=== PATIENT | female | born 1975 | race African-American/Black ===

== ENCOUNTER 2017-02-11 14:07 | Emergency (ER) | payer BC, OTHER ==
[~2017-02-11] VITALS: Ht 157.5 cm; Wt 100.4 kg
[~2017-02-11 14:07] MED LIST: BACT800T5 PO; CEPH500C3 PO; HYDRO2.5%T TOP; TRAM50 PO; YASM3TAB2 PO
[2017-02-11 14:12] VITALS: BP 140/80; PULSE 80; RESP 16; TEMP 98.2; O2SAT 96
--- NOTE | 2017-02-11 14:58 | PD ---
HPI . Vaginal bleeding Chief Complaint: Bleeding Time Seen by Provider: 14:16 Travel History International Travel<30 days: Yes Contact w/Intl Traveler<30days: Yes Name of Country Traveled to: [facility] Traveled to known affect area: No History of Present Illness HPI Patient presents with vaginal bleeding. She states that she had cramping yesterday with the onset of heavy vaginal bleeding and passage of clots. She states that the discomfort has pretty much resolved but she still has heavy bleeding. She states her last normal menstrual period was January 12. She denies any dyspareunia or vaginal discharge prior to the onset of the heavy bleeding. She reports a known history of fibroids but states that her bleeding is not usually this severe. [id number]: QUALITY: Clots SEVERITY: Severe DURATION: One day TIMING: Continuously CONTEXT: Known history of uterine fibroids MODIFYING FACTORS: No noted exacerbating or relieving symptoms PFSH Past Medical History Diminished Hearing: No Gastrointestinal Disorders: Yes (TREATED FOR H-PYLORI) Reproductive: Yes (FIBROID TUMORS) Immunizations Current: Yes Thyroid Disease: Yes (HYPOTHYROID-NOT MEDICATED) Tetanus Vaccination: > 5 Years Influenza Vaccination: No ?: Unknown LMP: 01-14-17 Social History Alcohol Use: No Tobacco Use: No Substance Use: No Allergies-Medications (Allergen,Severity, Reaction): Coded Allergies: Penicillin (Verified Allergy, Intermediate, RASH, 02/11/17) Reported Meds & Prescriptions Reported Meds & Active Scripts Active No Active Prescriptions or Reported Medications Review of Systems Except as stated in HPI: all other systems reviewed are Neg General / Constitutional: No: Fever, Chills HENT: Positive: Lightheadedness Cardiovascular: No: Chest Pain or Discomfort Respiratory: No: Shortness of Breath Gastrointestinal: No: Nausea, Vomiting Genitourinary: Positive: Pelvic Pain, Menorrhagia, No: Dyspareunia, Discharge Physical Exam Narrative GENERAL: Pleasant, healthy-appearing woman in no acute distress. SKIN: Warm and dry. HEAD: Atraumatic. Normocephalic. EYES: Pupils equal and round. ENT: No nasal bleeding or discharge. Mucous membranes pink and moist. NECK: Trachea midline. Neck is supple. CARDIOVASCULAR: Regular rate and rhythm. RESPIRATORY: No accessory muscle use. GASTROINTESTINAL: Abdomen soft, non-tender, nondistended. : Normal female. There is blood in the vaginal vault but it doesn't appear any heavier than normal menstrual cycle. There is no cervical motion tenderness or adnexal tenderness. MUSCULOSKELETAL: No obvious deformities. No edema. NEUROLOGICAL: Awake and alert. No obvious cranial nerve deficits. Motor grossly within normal limits. Normal speech. PSYCHIATRIC: Appropriate mood and affect; insight and judgment normal. Data Data Last Documented VS Vital Signs Date Time Temp Pulse Resp B/P Pulse Ox O2 Delivery O2 Flow Rate FiO2 02/11/17 15:10 66 16 140/78 72 16 132/80 90 16 136/85 02/11/17 14:12 98.2 96 Orders Ed Urine Pregnancytest Poc (02/11/17 14:16) Wet Prep Profile (02/11/17 14:50) Gc And Chlamydia Pcr (02/11/17 14:50) Orthostatic Vital Signs (02/11/17 14:58) Labs Laboratory Tests Test 02/11/17 14:45 Clue Cells (Wet Prep) NONE SEEN Vaginal Trichomonas (Wet Prep) NONE SEEN Vaginal Yeast (Wet Prep) NONE SEEN MDM Medical Decision Making Medical Screen Exam Complete: Yes Emergency Medical Condition: Yes Differential Diagnosis Differential diagnosis of vaginal bleeding includes but is not limited to dysfunctional uterine bleeding, normal menstrual cycle, ectopic , spontaneous AB, PID. Narrative Course Patient presents for evaluation of vaginal bleeding. Her test is negative. Her pelvic exam is benign. Wet prep is negative. Her heavy vaginal bleeding is most likely related to her fibroids. Diagnosis Primary Impression: Menorrhagia Qualified Code: N92.0 - Menorrhagia with regular cycle Referrals: [facility] Patient Instructions: General Instructions, Menorrhagia (ED) Med/Other Pt SpecificInfo: Prescription(s) given Scripts Tramadol (Ultram)50 Mg Tab50 Mg PO Q4H PRN (PAIN) #12 TAB Ref 0 Prov:Francheska Pinedo MD 02/11/17 Ibuprofen 800 Mg [id number] Mg PO Q8H PRN (pain) #30 TAB Ref 0 Prov:Francheska Pinedo MD 02/11/17 Disposition: 01 DISCHARGE HOME Condition: Stable Francheska Pinedo MD Feb 11, 2017 14:58
[2017-02-11 15:10] VITALS: BP_SYST 132; BP_SYST 136; BP_SYST 140; BP_DIAS 78; BP_DIAS 80; BP_DIAS 85; RESP 16
[2017-02-11] MEDS ORDERED: ULTR50TA5 PO (15:20)
[2017-02-11] MEDS ORDERED: IBUP800T23 PO (15:20)
[2017-02-11 22:04] LABS: CHLAMYDIA PCR NOT DETECTED (NOT DETECT); NEISSERIA PCR NOT DETECTED (NOT DETECT)
== END 2017-02-11 16:18 | disposition home or self-care (01) ==
LOC: PHED 14:07
DX: N92.0 Excessive and frequent menstruation with regular cycle (principal); D25.9 Leiomyoma of uterus, unspecified; E03.9 Hypothyroidism, unspecified
CPT/HCPCS: 84703; 87210; 87491; 87591; 99284

== ENCOUNTER 2017-12-31 12:12 | Emergency (ER) | payer BC ==
[~2017-12-31] VITALS: Ht 157.5 cm; Wt 90.3 kg
[~2017-12-31 12:12] MED LIST changes: -BACT800T5 PO; -CEPH500C3 PO; -HYDRO2.5%T TOP; +IBUP1TAB7 PO; -YASM3TAB2 PO
[2017-12-31 12:14] VITALS: BP 134/71; PULSE 91; RESP 16; TEMP 98.5; O2SAT 98
[2017-12-31] MEDS ORDERED: TYLETAB34 PO (12:32)
--- NOTE | 2017-12-31 12:34 | PD ---
HPI Chief Complaint: Headache Time Seen by Provider: 12:27 Travel History International Travel<30 days: No Contact w/Intl Traveler<30days: No Traveled to known affect area: No History of Present Illness HPI The patient was seen and examined in the presence of the nurse. She complains of headache. Duration is 5 days. Location is right frontal area. There is no thunderclap onset or head injury or fever. She takes no blood thinners. Patient's headache has improved spontaneously and is now fairly mild PFSH Past Medical History Hx Anticoagulant Therapy: No Diabetes: No Diminished Hearing: No Gastrointestinal Disorders: Yes (TREATED FOR H-PYLORI) Reproductive: Yes (FIBROID TUMORS) Immunizations Current: Yes Thyroid Disease: Yes (HYPOTHYROID-NOT MEDICATED) ?: Unknown Social History Alcohol Use: No Tobacco Use: No Substance Use: No Allergies-Medications (Allergen,Severity, Reaction): Coded Allergies: penicillin G (Unverified Allergy, Intermediate, RASH, 12/31/17) Reported Meds & Prescriptions Reported Meds & Active Scripts Active Tylenol-Codeine #3 (Acetaminophen-Codeine) 300-30 mg Tab 1 Tab PO Q4H PRN Ultram (Tramadol HCl) 50 Mg Tab 50 Mg PO Q4H PRN Ibuprofen 800 Mg Tab 800 Mg PO Q8H PRN Review of Systems General / Constitutional: No: Fever HENT: Positive: Headaches Cardiovascular: No: Chest Pain or Discomfort Respiratory: No: Cough Gastrointestinal: No: Nausea Physical Exam Narrative NEUROLOGICAL: Awake and alert. Pupils are equal round and reactive. Motor and sensory grossly within normal limits. Five out of 5 muscle strength in all muscle groups. Normal speech. Psych: Normal mood and affect. Normal insight and judgment. SKIN: Focused skin assessment reveals no rash or ulcers. Skin is warm and dry. Palpation shows no induration or nodules. Data Data Last Documented VS Vital Signs Date Time Temp Pulse Resp B/P (MAP) Pulse Ox O2 Delivery O2 Flow Rate FiO2 12/31/17 12:14 98.5 91 16 134/71 (92) 98 Orders Orders Ketorolac Inj (Toradol Inj) (12/31/17 12:45) [facility] Medical Decision Making Medical Screen Exam Complete: Yes Emergency Medical Condition: Yes Medical Record Reviewed: Yes Differential Diagnosis Differential diagnosis includes migraine, tension headache, cluster headache, meningitis. Narrative Course I have reviewed the patient's electronic medical record. Patient looks clinically well. Neurologically intact. Sedation not consistent with subarachnoid hemorrhage Symptoms are mild and she is smiling and looks comfortable I gave her Toradol injection and a few Tylenol 3 to use as needed The patient was advised to follow up with their physician and return if they worsen. Diagnosis Primary Impression: Headache Qualified Codes: R51 - Headache Med/Other Pt SpecificInfo: Prescription(s) given Scripts Acetaminophen-Codeine (Tylenol-Codeine #3) 300-30 mg Tab 1 TAB PO Q4H Y for PAIN, #10 TAB 0 Refills Prov: Bhanu Madrigal MD 12/31/17 Disposition: 01 DISCHARGE HOME Condition: Stable Bhanu Madrigal MD Dec 31, 2017 12:34
[2017-12-31] MEDS ORDERED: KETOROLAC TROMETHAMINE 60 MG/2 ML (IM) VIAL IM ONE (12:45)
== END 2017-12-31 12:54 | disposition home or self-care (01) ==
LOC: PHED 12:12
DX: R51 Headache (principal); E03.9 Hypothyroidism, unspecified; Z88.0 Allergy status to penicillin
CPT/HCPCS: 96372; 99284; J1885

== ENCOUNTER 2018-05-18 05:37 | Observation (INO) | payer BC ==
[~2018-05-18] VITALS: Ht 157.5 cm; Wt 91.0 kg
[2018-05-18] VITALS (7 sets, daily range): BP systolic 89–118; BP diastolic 59–67; PULSE 60–72; RESP 18; TEMP 97.6–98.7; O2SAT 94–98
[~2018-05-18 05:37] MED LIST changes: +ALPR.25 PO; +EPZITAB3 PO; +FERR325T18 PO; -IBUP1TAB7 PO; +REYA300C PO; -TRAM50 PO; +VITA1000 PO
[2018-05-18] MEDS ORDERED: CHLORHEXIDINE GLUCONATE 2 % 1 PACK (2 CLOTHS) TOPICAL PRN (06:00)
[2018-05-18] MEDS ORDERED: POVIDONE IODINE 5% (ANTISEPSIS KIT) 4 APPLICATIONS EACH NARE PRN (06:00)
[2018-05-18] MEDS ORDERED: METOPROLOL TARTRATE 25 MG TAB PO PRN (06:00)
[2018-05-18] MEDS ORDERED: CLINDAMYCIN 900 MG/NS PREMIX 50 ML IV SCH (06:00)
[2018-05-18] MEDS ORDERED: SODIUM CHLORID 0.9% 500 ML IV PRN (06:00)
[2018-05-18] MEDS ORDERED: PROV10TA PO (06:25)
[2018-05-18] MEDS ORDERED: ACETAMINOPHEN 1000 MG/100 ML 100 ML IV ONE (06:29)
[2018-05-18] MEDS: LACTATED RINGER'S 1000 ML IV PRN ×2 (06:50→16:40)
[2018-05-18] MEDS ORDERED: BUPIVACAINE/EPINEPHRINE 0.5% 50 ML VIAL ONE (06:56)
[2018-05-18] MEDS ORDERED: VASOPRESSIN 20 UNITS/ML VIAL ONE (06:57)
--- NOTE | 2018-05-18 07:49 | PD.OP ---
Operative Report Date of Surgery: May 18, 2018 Preoperative Diagnosis: (1) DUB (dysfunctional uterine bleeding) (2) Iron deficiency anemia due to chronic blood loss (3) Intramural leiomyoma of uterus (4) Human immunodeficiency virus (HIV) disease Postoperative Diagnosis: (1) DUB (dysfunctional uterine bleeding) (2) Iron deficiency anemia due to chronic blood loss (3) Intramural leiomyoma of uterus (4) Human immunodeficiency virus (HIV) disease (5) Endometriosis determined by laparoscopy Procedure: 1. Laparoscopic supracervical hysterectomy 2. B salpingectomy Anesthesia: JAMES Surgeon: Violet Moscoso Supply Chain Associate(s): OR Staff Operation and Findings: IVF: 1200 ml LR + IV antibiotics given prior to surgery + Methylene blue EBL: 100 ml UO: 200 ml Findings: 1. enlarged uterus with fibroids 2. normal tubes and ovaries 3. endometriosis Specimens: tubes, uterus Complications: none Condition: stable Disposition: PACU Descriptions of the procedure: I discussed the risks, benefits and alternatives of the procedure with the patient. Informed consent was obtained after questions were answered. She was then taken to the operating room with her IV running. She was placed in the supine position and was given general anesthesia without difficulties or complications. Iv antibiotics were given. She was then placed in the dorsal lithotomy position and was prepped and draped in the usual sterile fashion. Attention was first turned to the patient's genital area. A bivalved speculum was introduced inside the patient's vagina. The anterior aspect of the cervix was grasped with a single tooth tenaculum for manipulation. The cervix was carefully dilated and electrocauterized with the Bovie. A uterine manipulator was carefully introduced inside her uterus. The rest of the instruments were removed from the patient's vagina. A sterile blue towel was used to cover the perineum. The surgeon changed gloves and attention was then turned to the patient's abdomen. A vertical umbilical incision was made with the scalpel. A 5 mm trocar was introduced inside the patient's abdomen under direct visualization. A pneumo -peritoneum was created with CO2 gas. Two 5 mm trocars and one 10 mm trocar were introduced inside the patient's abdomen under direct visualization in the lower right, left and mid abdomen. A survey of the patient's abdomen revealed normal anatomy. A survey of the patient's pelvis revealed the findings noted above. The fallopian tubes were carefully grasped, electrocauterized and transected with the Harmonic scalpel. The round ligaments and the utero-ovarian ligaments were carefully and serially grasped, electrocauterized and cut with the Harmonic scalpel. Excellent hemostasis was noted. Methylene blue dye was given to patient. The tissues along the uterus on both sides were serially grasped, electrocauterized and transected with the Harmonic scalpel. The ureters were noted to be away from the surgical site. The uterine vessels were skeletonized, electrocauterized and transected with the Harmonic scalpel. Good hemostasis was noted. Next, the bladder flap was created and the bladder was dissected off the lower uterine segment. Excellent hemostasis was noted. The uterine manipulator was removed. Twila loop was used to cut and electrocauterize the cervico-uterine junction. Good hemostasis was noted. The Kleppinger was used to electrocauterize the endocervix. The morcellator was introduced inside the abdomen under direct visualization and was used to cut the uterus. The tissues were carefully removed and sent to Pathology. The surgical sites were noted to be hemostatic. Copious irrigation was done. Care was taken to ensure the removal of all small pieces of tissue which were left in the abdomen and pelvis after morcellation. Methylene blue dye was given at the beginning of the surgical procedure. The ureters were identified again and were found to be away from the surgical sites. There was no evidence of injury or blockage of the ureters or bladder. Intercede was placed over the cervix. All of the instruments were removed from the patient's abdomen. The ports were also removed under direct visualization. Excellent hemostasis was noted. The CO2 gas was carefully expressed out of the patient's abdomen. The 10 mm fascial incision was reapproximated with a figure eight stitch of 0-Vicryl. The skin incisions were injected with 0.5 % Marcaine and were reapproximated with subcutaneous stitches of 4-0 Vicryl. Mastisol and steri strips were placed over the incisions. The patient tolerated the procedure well. She was successfully extubated and transferred to PACU in stable condition. Note: I discussed surgical procedures and surgical findings with patient's father and family members. Their questions were answered. They verbalized understanding. Violet Moscoso MD May 18, 2018 07:49
[2018-05-18] MEDS ORDERED: ZOLPIDEM TARTRATE 5 MG TAB PO PRN (08:15)
[2018-05-18] MEDS ORDERED: ONDANSETRON ODT 4 MG TAB PO PRN (08:15)
[2018-05-18] MEDS ORDERED: oxyCODONE/ACETAMINOPHEN 5 MG/325 MG TAB PO PRN ×2 (08:15)
[2018-05-18] MEDS ORDERED: diphenhydrAMINE HCL 25 MG CAP PO PRN (08:15)
[2018-05-18] MEDS ORDERED: HYDROmorphone HCL PF 2 MG/ML VIAL IV PUSH PRN (08:15)
[2018-05-18] MEDS: DOCUSATE SODIUM 100 MG CAP PO SCH ×3 (08:15→21:26)
[2018-05-18] MEDS ORDERED: SODIUM CHLORIDE 0.9% FLUSH 10 ML FLUSH IV FLUSH PRN (08:15)
[2018-05-18] MEDS ORDERED: LORazepam 0.5 MG TAB PO PRN (08:15)
[2018-05-18] MEDS: SODIUM CHLORIDE 0.9% FLUSH 10 ML FLUSH IV FLUSH SCH ×2 (09:00→21:00)
[2018-05-18] MEDS ORDERED: PILL SPLITTER OTHER PRN (09:45)
[2018-05-18] MEDS ORDERED: DO NOT ADM ANY ANTICOAGULANT DRUGS PRN (10:25)
[2018-05-18] MEDS ORDERED: MORPHINE SULFATE 4 MG/ML INJ ONE (10:29)
[2018-05-18] MEDS ORDERED: MIDAZOLAM HCL 2 MG/2 ML VIAL ONE (10:30)
[2018-05-18] MEDS: LACTATED RINGER'S 1000 ML INJ 1,000 ML IV SCH (10:30)
[2018-05-18] MEDS: ACETAMINOPHEN 1000 MG/100 ML 100 ML IV SCH ×2 (11:25→17:16)
[2018-05-18] MEDS ORDERED: NEOSTIGMINE 5 MG/5 ML SYRINGE IV PUSH ONE (12:00)
[2018-05-18] MEDS ORDERED: ROCURONIUM INJ 50 MG/5 ML SYRINGE IV PUSH ONE (12:00)
[2018-05-18] MEDS ORDERED: KETOROLAC TROMETHAMINE 30 MG/ML (IVP) VIAL IV PUSH ONE (12:00)
[2018-05-18] MEDS ORDERED: DEXAMETHASONE SOD PHOS 4 MG/ML VIAL IV ONE (12:00)
[2018-05-18] MEDS ORDERED: LACTATED RINGER'S 1000 ML INJ 1,000 ML IV ONE (12:00)
[2018-05-18] MEDS ORDERED: METHYLENE BLUE 10 MG/ML VIAL OTHER ONE (12:00)
[2018-05-18] MEDS ORDERED: LIDOCAINE HCL 1% PF 5 ML SYRINGE OTHER ONE (12:00)
[2018-05-18] MEDS ORDERED: PROPOFOL 200 MG/20 ML AMP IV ONE (12:00)
[2018-05-18] MEDS ORDERED: GLYCOPYRROLATE 1 MG/5 ML SYRINGE IV PUSH ONE (12:00)
[2018-05-18] MEDS ORDERED: ONDANSETRON HCL 4 MG/2 ML VIAL IV ONE (12:00)
--- NOTE | 2018-05-18 12:30 | EKG ---
Date Performed: 05/18/2018 Time Performed: 06:55:41 PTAGE: 42 years EKG: Sinus rhythm NONSPECIFIC T-WAVE ABNORMALITY BORDERLINE ECG NO PREVIOUS TRACING DOCTOR: Shaka Nieto Interpretating Date/Time 05/18/2018 12:26:30
[2018-05-19 00:15] VITALS: BP 105/58; PULSE 62; RESP 18; TEMP 98.9; O2SAT 96
[2018-05-19] MEDS: ACETAMINOPHEN 1000 MG/100 ML 100 ML IV SCH ×2 (00:18→06:04)
[2018-05-19] MEDS: LACTATED RINGER'S 1000 ML INJ 1,000 ML IV SCH (00:26)
[2018-05-19 01:15] VITALS: BP 105/58; PULSE 62; RESP 18; TEMP 98.9; O2SAT 96
[2018-05-19 04:45] VITALS: BP 108/61; PULSE 58; RESP 18; TEMP 98.5; O2SAT 96
[2018-05-19 05:25] LABS: AUTOMATED NEUTROPHIL # 9.6 TH/MM3 (1.8-7.7); BASOPHIL % 0.1 % (0.0-2.0); EOSINOPHIL % 0.2 % (0.0-4.0); HEMATOCRIT 34.1 % (35.0-46.0); HEMOGLOBIN 11.8 GM/DL (11.6-15.3); LYMPH % 5.7 % (9.0-44.0); LYMPHOCYTE # 0.6 TH/MM3 (1.0-4.8); MEAN CELL VOLUME 95.2 FL (80.0-100.0); MEAN CORPUSCULAR HEMOGLOBIN 32.8 PG (27.0-34.0); MEAN CORPUSCULAR HGB CONC 34.5 % (32.0-36.0); MEAN PLATELET VOLUME 8.9 FL (7.0-11.0); MONO % 4.6 % (0.0-8.0); MONOCYTE # 0.5 TH/MM3 (0-0.9); NEUT % 89.4 % (16.0-70.0); PLATELET COUNT 253 TH/MM3 (150-450); RED BLOOD COUNT 3.58 MIL/MM3 (4.00-5.30); RED CELL DISTRIBUTION WIDTH 12.7 % (11.6-17.2); WHITE BLOOD COUNT 10.7 TH/MM3 (4.0-11.0)
[2018-05-19 05:45] LABS: BICARBONATE 20.5 MEQ/L (21.0-32.0); CALCIUM 8.4 MG/DL (8.5-10.1); CREATININE 0.91 MG/DL (0.50-1.00)
[2018-05-19 08:25] VITALS: BP 99/58; PULSE 70; RESP 18; TEMP 98.9; O2SAT 98
--- NOTE | 2018-05-19 08:35 | HHI.PR ---
Subjective Remarks Doing well, pain is well controlled, eating well. Spoke with patient over the phone Objective Vital Signs Vital Signs Date Time Temp Pulse Resp B/P (MAP) Pulse Ox O2 Delivery O2 Flow Rate FiO2 05/19/18 08:25 98.9 70 18 99/58 (72) 98 05/19/18 04:45 98.5 58 18 108/61 (77) 96 05/19/18 00:15 98.9 62 18 105/58 (74) 96 05/18/18 20:50 98.7 60 18 111/61 (78) 96 05/18/18 17:19 98.1 68 18 118/67 (84) 96 05/18/18 15:08 98 05/18/18 14:45 72 98 05/18/18 14:20 98 05/18/18 13:40 97.6 66 18 113/66 (82) 97 05/18/18 11:30 63 18 89/59 (69) 94 05/18/18 11:15 98.1 69 20 100/54 (69) 99 Nasal Cannula 2 05/18/18 11:00 68 20 94/55 (68) 99 Nasal Cannula 2 05/18/18 10:45 78 20 99/51 (67) 99 Nasal Cannula 2 05/18/18 10:23 98.1 76 20 102/55 (71) 92 Nasal Cannula 2 I/O 05/18/18 05/18/18 05/18/18 05/19/18 05/19/18 05/19/18 07:00 15:00 23:00 07:00 15:00 23:00 Intake Total 1200 ml Output Total 300 ml 750 ml 2200 ml Balance 900 ml -750 ml -2200 ml Other 1200 ml Output Urine Total 200 ml 750 ml 2200 ml Estimated Blood Loss 100 ml # Voids 1 Result Diagram: 05/19/18 0452 05/19/18 0452 Objective Remarks Chest is clear, regular rate and rhythm. Abdomen is soft and non-distended. Incision is clean and dry. Ext no CCE. A/P Assessment and Plan Post Op Day 1 Doing well Home today and return to office in two weeks. Violet Moscoso MD May 19, 2018 08:35
--- NOTE | 2018-05-19 08:38 | HHI.DCPOC ---
Discharge Care Plan Diagnosis: (1) Menorrhagia (2) Intramural leiomyoma of uterus (3) Iron deficiency anemia due to chronic blood loss (4) DUB (dysfunctional uterine bleeding) (5) Human immunodeficiency virus (HIV) disease (6) Endometriosis determined by laparoscopy Your Health Problems Are: Pelvic pain Report Symptoms to Your Doctor -Temperature above 100.5 degrees -Redness, of incision or excessive or foul smelling drainage -Unusual pain or calf pain -Increased vaginal bleeding -Painful or difficulty urinating -Feelings of extreme sadness or anxiety after 2 weeks Goals to Promote Your Health * To prevent worsening of your condition and complications * To maintain your health at the optimal level Directions to Meet Your Goals Take your medications as prescribed Follow your dietary instruction Follow activity as directed Ensure plenty of rest for recovery Drink fluids for hydration Keep your appointments as scheduled Take your immunizations and boosters as scheduled If your symptoms worsen call your PCP, if no PCP go to Urgent Care Center or Emergency Room Smoking is Dangerous to Your Health. Avoid second hand smoke Call the 24-hour crisis hotline for domestic abuse at Violet Moscoso MD May 19, 2018 08:37
[2018-05-19] MEDS: DOCUSATE SODIUM 100 MG CAP PO SCH (09:26)
[2018-05-19] MEDS ORDERED: IBUPROFEN 600 MG TAB PO PRN (10:00)
== END 2018-05-19 11:51 | disposition home or self-care (01) ==
LOC: HSDC 05:37 → HSDI 08:20 → H1EA 11:28
PROVIDERS: ADMIT Obstetrics & Gynecology; ATTEND Obstetrics & Gynecology
DX: N92.0 Excessive and frequent menstruation with regular cycle (principal); N93.8 Other specified abnormal uterine and vaginal bleeding; D50.0 Iron deficiency anemia secondary to blood loss (chronic); D25.1 Intramural leiomyoma of uterus; B20 Human immunodeficiency virus [HIV] disease; N80.0 Endometriosis of uterus; Z01.810 Encounter for preprocedural cardiovascular examination
CPT/HCPCS: 00840; 58542; 80048; 84702; 85025; 88307; 93005; 94150; 96374; 96376; C1765; G0378; J0131; J1100; J1885; J2250; J2270; J2405; J2710; J3010; J7120